=== PATIENT | female | born 1940 | race Caucasian/White ===

== ENCOUNTER 2021-12-04 16:16 | Emergency (ER) | payer MEDICARE ==
[~2021-12-04] VITALS: Ht 152.4 cm; Wt 65.9 kg
[2021-12-04 16:18] VITALS: TEMP 98.1
[2021-12-04 17:05] LABS: COLLECTION METHOD CLEAN CATCH
[2021-12-04 17:20] LABS: HEMATOCRIT 39.5 % (37.0-47.0); HEMOGLOBIN 13.6 g/dl (12.5-16.0); MEAN CELL VOLUME 95 fl (80.0-100.0); MEAN CORPUSCULAR HEMOGLOBIN 33 pg (27-31); MEAN CORPUSCULAR HGB CONC 34 g/dl (33.0-37.0); MEAN PLATELET VOLUME 9.5 fl (7.4-10.4); PLATELET COUNT 166 K/mm3 (130-400); RED BLOOD COUNT 4.17 M/mm3 (4.10-5.30); REDCELL DISTRIBUTION WIDTH-CV 12.7 % (11.5-14.5)
[2021-12-04 17:24] LABS: MUCOUS Present (NOT PRESENT); PH 5 (5-8); SQUAMOUS EPITHELIAL 0-2 /hpf (0-10); URINE APPEARANCE Hazy (CLEAR/HAZY); URINE BACTERIA None Seen /hpf (NONE SEEN); URINE BILIRUBIN Negative (NEGATIVE); URINE BLOOD Negative (NEGATIVE); URINE COLOR Amber (YELLOW); URINE GLUCOSE Negative (NEGATIVE); URINE KETONE 1+ (NEGATIVE); URINE LEUKOCYTE ESTERASE Negative (NEGATIVE); URINE NITRATE Negative (NEGATIVE); URINE PROTEIN(semi-quant) Negative (NEGATIVE); URINE RBC 0-2 /hpf (0-2)
[2021-12-04 17:45] LABS: ALBUMIN 3.3 gm/dL (3.4-4.8); BILIRUBIN,TOTAL 1.3 mg/dL (0.2-1.2); CALCIUM 9.2 mg/dL (8.4-10.2); CREATININE, serum 0.62 mg/dL (0.57-1.11); POTASSIUM 3.3 mmol/L (3.5-4.5); TOTAL PROTEIN 6.5 gm/dL (6.2-8.1)
[2021-12-04 18:28] LABS: BAND 7 % (0-10); BASOPHIL 1 % (0-2); LYMPHOCYTE 7 % (20.0-51.0); NEUTROPHILS 84 % (42.0-75.2); PLATELET ESTIMATE NORMAL (NORMAL)
[2021-12-04] MEDS ORDERED: ROBAXIN 75750 MG/TAB PO (21:26)
[2021-12-04] MEDS ORDERED: NAPROSYN 2250 MG/TAB PO (21:26)
[2021-12-04 22:45] VITALS: BP 119/58; PULSE 63
== END 2021-12-04 22:45 | disposition home or self-care (01) ==
LOC: COL.ER 16:16
PROVIDERS: Emergency Medicine
DX: M54.9 Dorsalgia, unspecified (principal); Z99.81 Dependence on supplemental oxygen; Z28.310 Unvaccinated for COVID-19
CPT/HCPCS: J1885; Q9967

== ENCOUNTER 2021-12-10 07:54 | Inpatient (IN) | payer MEDICARE ==
[~2021-12-10] VITALS: Ht 167.6 cm; Wt 70.4 kg
[~2021-12-10 07:54] MED LIST: NAPROSYN 2250 MG/TAB PO; ROBAXIN 75750 MG/TAB PO
[2021-12-10 08:32] LABS: HEMOGLOBIN 13.4 g/dl (12.5-16.0); MEAN CELL VOLUME 91 fl (80.0-100.0); MEAN CORPUSCULAR HEMOGLOBIN 32 pg (27-31); MEAN CORPUSCULAR HGB CONC 35 g/dl (33.0-37.0); MEAN PLATELET VOLUME 9.3 fl (7.4-10.4); PLATELET COUNT 207 K/mm3 (130-400); RED BLOOD COUNT 4.16 M/mm3 (4.10-5.30); REDCELL DISTRIBUTION WIDTH-CV 13.3 % (11.5-14.5)
[2021-12-10 08:36] LABS: COLLECTION METHOD CATHETER
[2021-12-10 08:47] LABS: ALANINE AMINOTRANSFERASE 80 U/L (0-55); ALBUMIN 2.1 gm/dL (3.4-4.8); ALKALINE PHOSPHATASE 382 U/L (40-150); ANION GAP 11 mmol/L (7-16); AST,SGOT 37 U/L (5-34); BLOOD UREA NITROGEN 17 mg/dL (10-20); CALCIUM 9.3 mg/dL (8.4-10.2); CARBON DIOXIDE 25 mmol/L (23-31); CHLORIDE 105 mmol/L (98-107); CREATININE, serum 0.63 mg/dL (0.57-1.11); GLUCOSE 122 mg/dL (70-99); POTASSIUM 3.2 mmol/L (3.5-4.5); SODIUM 141 mmol/L (136-145); TOTAL PROTEIN 6.1 gm/dL (6.2-8.1)
[2021-12-10 08:48] LABS: LIPASE < 4 U/L (8-78)
[2021-12-10 08:56] LABS: MUCOUS Present (NOT PRESENT); PH 5 (5-8); SQUAMOUS EPITHELIAL 0-2 /hpf (0-10); URINE APPEARANCE Hazy (CLEAR/HAZY); URINE BACTERIA None Seen /hpf (NONE SEEN); URINE BILIRUBIN Positive (NEGATIVE); URINE BLOOD Negative (NEGATIVE); URINE CALCIUM OXALATE CRYSTAL Present (NOT PRESENT); URINE COLOR Amber (YELLOW); URINE GLUCOSE Negative (NEGATIVE); URINE KETONE Negative (NEGATIVE); URINE LEUKOCYTE ESTERASE Trace (NEGATIVE); URINE NITRATE Negative (NEGATIVE); URINE PROTEIN(semi-quant) 2+ (NEGATIVE); URINE UROBILINOGEN >=4.0 (NEGATIVE)
[2021-12-10 09:26] LABS: BAND 11 % (0-10); LYMPHOCYTE 9 % (20.0-51.0); MYELOCYTE 1 % (0-0); NEUTROPHILS 70 % (42.0-75.2); PLATELET ESTIMATE NORMAL (NORMAL)
[2021-12-10 14:30] VITALS: BP 188/76; PULSE 64; TEMP 98
[2021-12-10] MEDS ORDERED: MACRODANTIN50 MG/CA1 PO (14:51)
[2021-12-10] MEDS ORDERED: COSOPT 2%-0.5%10 ML OU (14:53)
[2021-12-10] MEDS ORDERED: LUMIGAN 2.5 ML2.5 M1 OP (14:54)
[2021-12-10] MEDS ORDERED: WELLBUTRIN XL300 M1 PO (14:55)
[2021-12-10] MEDS ORDERED: ADDERALL20 MG PO (14:55)
[2021-12-10] MEDS ORDERED: DESYREL 100MG100 MG PO (14:56)
[2021-12-10] MEDS ORDERED: NORVASC 5MG5 MG/TAB PO (14:56)
[2021-12-10] MEDS ORDERED: ZOCOR 20MG20 MG PO (14:57)
[2021-12-10] MEDS ORDERED: PRINIVIL40 MG PO (14:57)
[2021-12-10] MEDS ORDERED: ASPIRIN 81M81 MG/TA2 PO (14:57)
[2021-12-10] MEDS ORDERED: PRILOSEC 20MG20 MG PO (14:58)
[2021-12-10] MEDS ORDERED: EPA FISH OIL1 SGL PO (14:59)
[2021-12-10] MEDS ORDERED: GAS RELIEF 8080 MG PO (14:59)
[2021-12-10] MEDS ORDERED: ULTRAM 50MG TAB50 MG PO (15:00)
[2021-12-10] MEDS ORDERED: MULTI VITAMINS1 TAB PO (15:00)
[2021-12-10] MEDS ORDERED: MIRALAX PA17 GM/Dose PO (15:04)
[2021-12-10] MEDS ORDERED: VOLTAREN GEL 1%1 TU TP (15:35)
[2021-12-10 15:36] VITALS: BP 134/51; PULSE 66; TEMP 98.2
[2021-12-10 19:23] VITALS: BP 163/68; PULSE 67; TEMP 98.6
[2021-12-11] VITALS (422 sets, daily range): BP systolic 92–190; BP diastolic 40–101; PULSE 55–96; TEMP 97.6–99; O2SAT 62–100
[2021-12-11 07:30] LABS: HEMATOCRIT 40.3 % (37.0-47.0); HEMOGLOBIN 13.8 g/dl (12.5-16.0); MEAN CELL VOLUME 94 fl (80.0-100.0); MEAN CORPUSCULAR HEMOGLOBIN 32 pg (27-31); MEAN CORPUSCULAR HGB CONC 34 g/dl (33.0-37.0); MEAN PLATELET VOLUME 9.6 fl (7.4-10.4); PLATELET COUNT 228 K/mm3 (130-400); RED BLOOD COUNT 4.28 M/mm3 (4.10-5.30); REDCELL DISTRIBUTION WIDTH-CV 13.6 % (11.5-14.5)
[2021-12-11 07:51] LABS: ALBUMIN 1.9 gm/dL (3.4-4.8); BILIRUBIN,TOTAL 0.9 mg/dL (0.2-1.2); CALCIUM 9.1 mg/dL (8.4-10.2); CREATININE, serum 0.54 mg/dL (0.57-1.11); MAGNESIUM 1.6 mg/dL (1.6-2.6); POTASSIUM 3.1 mmol/L (3.5-4.5); TOTAL PROTEIN 5.9 gm/dL (6.2-8.1)
[2021-12-11 10:00] LABS: BAND 2 % (0-10); LYMPHOCYTE 2 % (20.0-51.0); NEUTROPHILS 92 % (42.0-75.2); PLATELET ESTIMATE NORMAL (NORMAL)
[2021-12-11 10:01] LABS: BURR CELLS 1+; HYPERSEGMENTED POLYS PRESENT; OVALOCYTES 1+; POIKILOCYTOSIS 1+; POLYCHROMASIA 1+
[2021-12-11 13:50] LABS: ARTERIAL BLD GAS O2 SATURATION 90.1 % (92-100); ARTERIAL BLD GAS TCO2 CT 22.9; ARTERIAL BLOOD GAS BASE EXCESS -1.7 (-2-2); ARTERIAL BLOOD GAS HCO3 21.9 meq/L (22-26); ARTERIAL BLOOD GAS PCO2 33.7 mmHg (35-45); ARTERIAL BLOOD GAS pH 7.43 (7.35-7.45)
[2021-12-11 17:43] LABS: ARTERIAL BLD GAS O2 SATURATION 94.3 % (92-100); ARTERIAL BLD GAS TCO2 CT 23.1; ARTERIAL BLOOD GAS BASE EXCESS -0.2 (-2-2); ARTERIAL BLOOD GAS HCO3 22.2 meq/L (22-26); ARTERIAL BLOOD GAS PCO2 29.9 mmHg (35-45); ARTERIAL BLOOD GAS PO2 68.6 mmHg (80-100); ARTERIAL BLOOD GAS pH 7.49 (7.35-7.45)
[2021-12-11 20:30] LABS: ARTERIAL BLD GAS O2 SATURATION 99.4 % (92-100); ARTERIAL BLD GAS TCO2 CT 23.2; ARTERIAL BLOOD GAS BASE EXCESS 0.9 (-2-2); ARTERIAL BLOOD GAS HCO3 22.4 meq/L (22-26); ARTERIAL BLOOD GAS PCO2 27.9 mmHg (35-45); ARTERIAL BLOOD GAS pH 7.52 (7.35-7.45)
[2021-12-12] VITALS (873 sets, daily range): BP systolic 89–116; BP diastolic 44–58; PULSE 60–64; TEMP 97.2–98.4; O2SAT 81–100
[2021-12-12 00:06] LABS: ARTERIAL BLD GAS O2 SATURATION 96.9 % (92-100); ARTERIAL BLD GAS TCO2 CT 21.6; ARTERIAL BLOOD GAS BASE EXCESS -1.7 (-2-2); ARTERIAL BLOOD GAS HCO3 20.7 meq/L (22-26); ARTERIAL BLOOD GAS PCO2 28.2 mmHg (35-45); ARTERIAL BLOOD GAS PO2 87.2 mmHg (80-100); ARTERIAL BLOOD GAS pH 7.48 (7.35-7.45)
[2021-12-12 05:09] LABS: BASO # 0.1 K/mm3 (0.0-0.2); BASO % 0.4 % (0.0-2.0); EOS # 0.1 K/mm3 (0.0-0.7); EOS % 0.3 % (0.0-4.0); GRAN # 16.9 K/mm3 (1.4-6.5); GRAN % 86.4 % (42.2-75.2); LYMPH # 1.2 K/mm3 (1.2-3.4); LYMPH % 6.2 % (20.0-51.0); MEAN CELL VOLUME 95 fl (80.0-100.0); MEAN CORPUSCULAR HGB CONC 34 g/dl (33.0-37.0); MEAN PLATELET VOLUME 9.4 fl (7.4-10.4); MONO # 1.1 K/mm3 (0.1-0.6); MONO % 5.5 % (1.7-9.3); PLATELET COUNT 204 K/mm3 (130-400); RED BLOOD COUNT 3.43 M/mm3 (4.10-5.30); REDCELL DISTRIBUTION WIDTH-CV 14.1 % (11.5-14.5)
[2021-12-12 05:11] LABS: INR 1.4 (0.8-3.0)
[2021-12-12 05:13] LABS: ARTERIAL BLD GAS TCO2 CT 23.9; ARTERIAL BLOOD GAS BASE EXCESS -0.3 (-2-2); ARTERIAL BLOOD GAS HCO3 22.9 meq/L (22-26); ARTERIAL BLOOD GAS PCO2 32.9 mmHg (35-45); ARTERIAL BLOOD GAS PO2 104.7 mmHg (80-100); ARTERIAL BLOOD GAS pH 7.46 (7.35-7.45)
[2021-12-12 05:23] LABS: ALBUMIN 1.7 gm/dL (3.4-4.8); CALCIUM 8.4 mg/dL (8.4-10.2); CREATININE, serum 0.59 mg/dL (0.57-1.11); MAGNESIUM 1.5 mg/dL (1.6-2.6); PHOSPHOROUS 2.7 mg/dL (2.3-4.7); POTASSIUM 3.7 mmol/L (3.5-4.5); TOTAL PROTEIN 5.2 gm/dL (6.2-8.1)
[2021-12-12 05:36] LABS: HEMATOCRIT 32.6 % (37.0-47.0); MEAN CORPUSCULAR HEMOGLOBIN 32 pg (27-31)
[2021-12-12 10:17] LABS: PLEURAL FLUID RBC 7000 /mm3 (0-0); PLEURAL FLUID WBC 1100 /mm3
[2021-12-12 10:24] LABS: PLEURAL FLUID APPEARANCE CLOUDY; PLEURAL FLUID COLOR YELLOW
[2021-12-12 13:58] LABS: ARTERIAL BLD GAS O2 SATURATION 96.8 % (92-100); ARTERIAL BLD GAS TCO2 CT 22.2; ARTERIAL BLOOD GAS BASE EXCESS -3.6 (-2-2); ARTERIAL BLOOD GAS HCO3 21.1 meq/L (22-26); ARTERIAL BLOOD GAS PCO2 36.7 mmHg (35-45); ARTERIAL BLOOD GAS PO2 91.8 mmHg (80-100); ARTERIAL BLOOD GAS pH 7.38 (7.35-7.45)
== END 2021-12-12 15:10 | disposition short-term general hospital (02) | DRG 871 ==
LOC: COL.ER 07:54 → MEDICAL 12:59 → ICU 12-11 14:09
PROVIDERS: Emergency Medicine; Internal Medicine Pulmonary Disease; Physician Assistant; ADMIT Internal Medicine
PROC: 02HV33Z Insertion of Infusion Device into Superior Vena Cava, Percutaneous Approach (ICD-10-PCS; principal; 2021-12-11)
PROC: 5A1935Z Respiratory Ventilation, Less than 24 Consecutive Hours (ICD-10-PCS; 2021-12-11)
PROC: 0BH18EZ Insertion of Endotracheal Airway into Trachea, Via Natural or Artificial Opening Endoscopic (ICD-10-PCS; 2021-12-11)
DX: A41.9 Sepsis, unspecified organism (principal); J18.9 Pneumonia, unspecified organism; J96.01 Acute respiratory failure with hypoxia; J90 Pleural effusion, not elsewhere classified; I38 Endocarditis, valve unspecified; K59.00 Constipation, unspecified; G89.29 Other chronic pain; R59.1 Generalized enlarged lymph nodes; M41.85 Other forms of scoliosis, thoracolumbar region; E78.5 Hyperlipidemia, unspecified; F90.9 Attention-deficit hyperactivity disorder, unspecified type; K21.9 Gastro-esophageal reflux disease without esophagitis; I10 Essential (primary) hypertension; M46.46 Discitis, unspecified, lumbar region; B95.61 Methicillin susceptible Staphylococcus aureus infection as the cause of diseases classified elsewhere; H40.9 Unspecified glaucoma; R74.01 Elevation of levels of liver transaminase levels; F32.A Depression, unspecified; Z20.822 Contact with and (suspected) exposure to COVID-19; E83.52 Hypercalcemia; E87.6 Hypokalemia; E88.09 Other disorders of plasma-protein metabolism, not elsewhere classified; Z79.82 Long term (current) use of aspirin; Z87.19 Personal history of other diseases of the digestive system; Z90.710 Acquired absence of both cervix and uterus; Z87.440 Personal history of urinary (tract) infections; Z23 Encounter for immunization
CPT/HCPCS: 99223-AI; 99232-AI; A4314; A9284; C1751; C9113; J0696; J1650; J1940; J2060; J2212; J2270; J2543; J2704; J3010; J3370; J3480; J7030; J7040; J7050; P9047; Q9967

== ENCOUNTER 2022-01-13 08:59 | Inpatient (IN) | payer MEDICARE ==
[~2022-01-13] VITALS: Ht 152.4 cm; Wt 72.7 kg
[~2022-01-13 08:59] MED LIST changes: +ADDERALL20 MG PO; +ASPIRIN 81M81 MG/TA2 PO; +COSOPT 2%-0.5%10 ML OU; +DESYREL 100MG100 MG PO; +EPA FISH OIL1 SGL PO; +GAS RELIEF 8080 MG PO; +LUMIGAN 2.5 ML2.5 M1 OP; +MACRODANTIN50 MG/CA1 PO; +MIRALAX PA17 GM/Dose PO; +MULTI VITAMINS1 TAB PO; +NORVASC 5MG5 MG/TAB PO; +PRILOSEC 20MG20 MG PO; +PRINIVIL40 MG PO; +ULTRAM 50MG TAB50 MG PO; +VOLTAREN GEL 1%1 TU TP; +WELLBUTRIN XL300 M1 PO; +ZOCOR 20MG20 MG PO
[2022-01-13 10:02] LABS: BASO % 0.4 % (0.0-2.0); EOS # 0.1 K/mm3 (0.0-0.7); EOS % 0.8 % (0.0-4.0); GRAN # 5.8 K/mm3 (1.4-6.5); GRAN % 73.3 % (42.2-75.2); LYMPH # 1.6 K/mm3 (1.2-3.4); LYMPH % 19.7 % (20.0-51.0); MEAN CELL VOLUME 106 fl (80.0-100.0); MEAN CORPUSCULAR HGB CONC 31 g/dl (33.0-37.0); MEAN PLATELET VOLUME 9.2 fl (7.4-10.4); MONO # 0.4 K/mm3 (0.1-0.6); MONO % 5.5 % (1.7-9.3); PLATELET COUNT 193 K/mm3 (130-400); RED BLOOD COUNT 2.71 M/mm3 (4.10-5.30); REDCELL DISTRIBUTION WIDTH-CV 23.9 % (11.5-14.5)
[2022-01-13 10:07] LABS: COLLECTION METHOD CATHETER
[2022-01-13 10:07] LABS: HEMATOCRIT 28.8 % (37.0-47.0); MEAN CORPUSCULAR HEMOGLOBIN 33 pg (27-31)
[2022-01-13 10:09] LABS: INR 1.3 (0.8-3.0); PROTHROMBIN TIME 14.5 SECONDS (9.7-12.8)
[2022-01-13 10:13] LABS: PH 6 (5-8); SQUAMOUS EPITHELIAL 0-2 /hpf (0-10); URINE APPEARANCE Clear (CLEAR/HAZY); URINE BACTERIA None Seen /hpf (NONE SEEN); URINE BLOOD Negative (NEGATIVE); URINE COLOR Yellow (YELLOW); URINE GLUCOSE Negative (NEGATIVE); URINE KETONE Negative (NEGATIVE); URINE NITRATE Negative (NEGATIVE); URINE PROTEIN(semi-quant) Negative (NEGATIVE); URINE RBC 0-2 /hpf (0-2); URINE UROBILINOGEN Negative (NEGATIVE)
[2022-01-13 10:19] LABS: ALBUMIN 1.3 gm/dL (3.4-4.8); BILIRUBIN,TOTAL 0.7 mg/dL (0.2-1.2); CREATININE, serum 1.3 mg/dL (0.57-1.11); TOTAL PROTEIN 4.9 gm/dL (6.2-8.1)
[2022-01-13 10:28] LABS: TROPONIN-I 0.109 ng/mL (0.00-0.033)
[2022-01-13 14:30] VITALS: BP 162/67; PULSE 64; TEMP 98.7
[2022-01-13] MEDS ORDERED: CORDARONE200 MG/TAB PO (14:38)
[2022-01-13] MEDS ORDERED: ELIQUIS 2.5 PO (14:38)
[2022-01-13] MEDS ORDERED: NITROSTAT0.4 MG/TAB SL (14:39)
[2022-01-13] MEDS ORDERED: ROXICODONE 55 MG/TAB PO (14:40)
[2022-01-13] MEDS ORDERED: TYLENOL 325MG325 MG PO (14:41)
[2022-01-13] MEDS ORDERED: REMERON 15M15 MG/TA1 PO (14:44)
[2022-01-13] MEDS ORDERED: LASIX 20MG TABL20 MG PO (14:45)
[2022-01-13] MEDS ORDERED: CEPACOL SORE TH1 LO8 MM (14:47)
[2022-01-13] MEDS ORDERED: SALONPAS1 EACH TP (14:52)
[2022-01-13] MEDS ORDERED: MYLANTA 150 ML150 M1 PO (14:55)
[2022-01-13] MEDS ORDERED: LOMOTIL 0.025 M1 TAB PO (14:57)
[2022-01-13] MEDS ORDERED: DULCOLAX TAB5 MG PO (14:58)
[2022-01-13] MEDS ORDERED: MIRALAX PA17 GM/Dose PO (14:59)
[2022-01-13] MEDS ORDERED: ZOFRAN ODT4 MG PO (15:02)
[2022-01-13] MEDS ORDERED: PROTONIX 40MG T40 MG PO (15:02)
[2022-01-13] MEDS ORDERED: LOTRIMIN AF133 GM TOP (15:05)
[2022-01-13] MEDS ORDERED: ANUSOL HC CREAM30 GM TP (15:07)
[2022-01-13] MEDS ORDERED: ALIGN PO (15:08)
[2022-01-13] MEDS ORDERED: [UNRECOGNIZED DRUG - CODE] IV (15:10)
[2022-01-13] MEDS ORDERED: XALATAN EYE DROPS OU (15:12)
[2022-01-13] MEDS ORDERED: REFRESH CELLUVI1 SOL OU (15:14)
[2022-01-13 16:00] VITALS: BP 123/52; PULSE 65
--- NOTE | 2022-01-13 18:26 | NUR ---
PT ADMITED FROM ED , CURRENTLY STAYING IN [facility], ADMITTED WITH C/O SOB, PT ON TELE, PICC LINE ON LEFT UPPER ARM, ON ROOM AIR.EDEMA TO THE SEDRICK LOWER EXTRIMITY, SACRAL AREA IS REDDENED.PT IS ORIENT AND ALERT X4, DUE MEDICATIONS GIVEN.DENIES COMPLAINTS OF PAIN.PT IS INCONTINENT OF URINE AND STOOL, PURIC INPLACE.
[2022-01-13 19:00] VITALS: BP 141/54; PULSE 73; TEMP 97.8
[2022-01-13 22:32] LABS: PARTIAL THROMBOPLASTIN TIME 34.3 SECONDS (26.0-37.0)
[2022-01-13 23:28] VITALS: BP 160/85; PULSE 93; TEMP 99
[2022-01-14 03:17] VITALS: BP 130/77; PULSE 75; TEMP 98.9
[2022-01-14 07:13] LABS: ALBUMIN 1.2 gm/dL (3.4-4.8); CREATININE, serum 1.29 mg/dL (0.57-1.11); MAGNESIUM 1.6 mg/dL (1.6-2.6); PHOSPHOROUS 3.4 mg/dL (2.3-4.7); POTASSIUM 3.2 mmol/L (3.5-4.5)
[2022-01-14 07:16] LABS: BASO % 0.4 % (0.0-2.0); EOS # 0.1 K/mm3 (0.0-0.7); EOS % 0.6 % (0.0-4.0); GRAN # 5.9 K/mm3 (1.4-6.5); HEMATOCRIT 28.8 % (37.0-47.0); LYMPH # 1.9 K/mm3 (1.2-3.4); LYMPH % 22.7 % (20.0-51.0); MEAN CELL VOLUME 108 fl (80.0-100.0); MEAN CORPUSCULAR HEMOGLOBIN 34 pg (27-31); MEAN CORPUSCULAR HGB CONC 31 g/dl (33.0-37.0); MEAN PLATELET VOLUME 9.3 fl (7.4-10.4); MONO # 0.6 K/mm3 (0.1-0.6); MONO % 6.8 % (1.7-9.3); PLATELET COUNT 189 K/mm3 (130-400); RED BLOOD COUNT 2.67 M/mm3 (4.10-5.30); REDCELL DISTRIBUTION WIDTH-CV 23.9 % (11.5-14.5)
[2022-01-14 07:38] VITALS: BP 107/46; PULSE 75; TEMP 98.1
--- NOTE | 2022-01-14 10:30 | NUR ---
Initial visit; Patient thanked Field Organizer for looking in on her and offering God's blessings and keeping her in Field Organizer's prayers.
[2022-01-14 11:09] VITALS: BP 101/59; PULSE 63; TEMP 98.8
--- NOTE | 2022-01-14 13:15 | NUR ---
Patient admitted with PICC located in her left upper arm. PICC dressing changes dated 01/05/2022. There are no signs or symptoms of IV complications noted. Sterile dressing change performed. Caps changed.
[2022-01-14 16:20] VITALS: BP 140/57; PULSE 66; TEMP 97.6
--- NOTE | 2022-01-14 17:21 | NUR ---
Application Support Technician spoke with Shashi at [facility] who advised they admitted patient from [facility] on Friday and that it was a very difficulty weekend with patient. Shashi advised they do not feel patient's needs can be met at SNF and that she needs LTACH. MANDEEP collaborated with Hospitalist who advised a referral to [facility] would be appropriate. MANDEEP met with patient and patient's daughter, Anamaria (ph#[phone]) and granddaughter Lanny (ph#[phone]). Patient's primary care physician is Dr. Lidia Shi and she was living in [place] prior to recent hospitalization. Patient was hospitalized here then transferred to [facility] where she was for four weeks. Patient would like to get back home eventually. Lanny also remarked they want to see Dr. Jackson as an outpatient once she is back home. Patient has no Advance Directives in EMR but Anamaria advised that patient's son, Julius (ph#[phone]) is DPOA-HC and that his , Kb (ph#[phone]) is another good point of contact. Lanny and Anamaria feel patient was discharged from [facility] too soon and are agreeable to [facility] referral. MANDEEP faxed referral to [facility] and will follow up tomorrow. Discharge Plan: [facility]
[2022-01-14 20:35] VITALS: BP 122/52; PULSE 79; TEMP 99.1
[2022-01-15] VITALS (7 sets, daily range): BP systolic 101–131; BP diastolic 53–57; PULSE 60–72; TEMP 97.7–98.8
[2022-01-15 06:20] LABS: BASO % 0.5 % (0.0-2.0); EOS # 0.2 K/mm3 (0.0-0.7); EOS % 1.9 % (0.0-4.0); GRAN # 4.9 K/mm3 (1.4-6.5); GRAN % 61.2 % (42.2-75.2); LYMPH # 2.3 K/mm3 (1.2-3.4); LYMPH % 28.8 % (20.0-51.0); MEAN CELL VOLUME 106 fl (80.0-100.0); MEAN CORPUSCULAR HGB CONC 32 g/dl (33.0-37.0); MEAN PLATELET VOLUME 9.6 fl (7.4-10.4); MONO # 0.6 K/mm3 (0.1-0.6); MONO % 7.3 % (1.7-9.3); PLATELET COUNT 212 K/mm3 (130-400); RED BLOOD COUNT 2.61 M/mm3 (4.10-5.30); REDCELL DISTRIBUTION WIDTH-CV 23.4 % (11.5-14.5)
[2022-01-15 06:26] LABS: HEMATOCRIT 27.6 % (37.0-47.0); HEMOGLOBIN 8.8 g/dl (12.5-16.0); MEAN CORPUSCULAR HEMOGLOBIN 34 pg (27-31)
--- NOTE | 2022-01-15 06:32 | NUR ---
PT FAMILY HAD CONCERNS/COMPLAINTS ABOUT VARIOUS THINGS OVER THE SPAN OF A MONTH OR SO. MUCH OF THE TIME THAT FAMILY IS SPEAKING OUT, PT WAS NOT AT [facility] BUT AT OTHER FACILITIES. DAUGHTER/GRANDDAUGHTER VERY UPSET REGARDING DIET ORDERED FULL LIQUIDS. DAUGHTER INSISTENT THAT PATIENT IS NOT EATING ENOUGH. REPEATEDLY STATED THAT WE ARE "TRYING TO KILL" HER MOTHER. REQUESTED THAT PT'S EARS BE IRRIGATED. EXPLAINED TO THEM THAT I COULD NOT DO THAT WITHOUT A DOCTORS ORDER, WILL PASS THAT REQUEST ALONG TO FIRST SHIFT NURSE. ALLOWED FAMILY TO SPEAK AND VENT. ASKED THEM MULTIPLE TIMES IF THERE WAS ANYTHING I COULD DO FOR THEM TO RESOLVE STRESS LEVEL AT THIS TIME, THEY DID NOT REQUEST ANYTHING INPARTICULAR. LISTENED TO CONCERNS, ALLOWED FOR VENTING. REASSURED THEM ABOUT CARE FOR THE PATIENT. PATIENT LATER APOLOGIZED TO ME ABOUT FAMILY BEHAVIORS.
[2022-01-15 06:43] LABS: ALBUMIN 1.2 gm/dL (3.4-4.8); CALCIUM 7.8 mg/dL (8.4-10.2); CREATININE, serum 1.26 mg/dL (0.57-1.11); MAGNESIUM 1.6 mg/dL (1.6-2.6); PHOSPHOROUS 3.1 mg/dL (2.3-4.7)
[2022-01-15 06:51] LABS: POTASSIUM 2.8 mmol/L (3.5-4.5)
[2022-01-15 10:32] LABS: PLEURAL FLUID RBC 21000 /mm3 (0-0); PLEURAL FLUID WBC 593 /mm3
[2022-01-15 10:46] LABS: PLEURAL FLUID APPEARANCE HAZY; PLEURAL FLUID COLOR PINK
--- NOTE | 2022-01-15 16:36 | NUR ---
Regional Marketing Director received a message from Maddi at [facility] who advised patient meets criteria and they may have a bed or Friday. SW contacted Maddi and left message that patient is ready for DC once a bed is available per Hospitalist and that family prefers [facility] if possible.
[2022-01-16 04:24] VITALS: BP 127/62; PULSE 72; TEMP 97.6
[2022-01-16 06:40] LABS: BASO % 0.5 % (0.0-2.0); EOS # 0.2 K/mm3 (0.0-0.7); EOS % 3.7 % (0.0-4.0); GRAN # 3.6 K/mm3 (1.4-6.5); GRAN % 56.7 % (42.2-75.2); LYMPH # 1.9 K/mm3 (1.2-3.4); LYMPH % 30.3 % (20.0-51.0); MEAN CELL VOLUME 106 fl (80.0-100.0); MEAN CORPUSCULAR HGB CONC 32 g/dl (33.0-37.0); MEAN PLATELET VOLUME 9.7 fl (7.4-10.4); MONO # 0.5 K/mm3 (0.1-0.6); MONO % 8.3 % (1.7-9.3); PLATELET COUNT 199 K/mm3 (130-400); RED BLOOD COUNT 2.48 M/mm3 (4.10-5.30); REDCELL DISTRIBUTION WIDTH-CV 23.3 % (11.5-14.5)
[2022-01-16 06:45] LABS: HEMATOCRIT 26.3 % (37.0-47.0); HEMOGLOBIN 8.4 g/dl (12.5-16.0); MEAN CORPUSCULAR HEMOGLOBIN 34 pg (27-31)
[2022-01-16 06:55] LABS: ALBUMIN 1.1 gm/dL (3.4-4.8); CALCIUM 7.6 mg/dL (8.4-10.2); CREATININE, serum 1.26 mg/dL (0.57-1.11); MAGNESIUM 1.6 mg/dL (1.6-2.6); PHOSPHOROUS 2.7 mg/dL (2.3-4.7); POTASSIUM 4.1 mmol/L (3.5-4.5)
[2022-01-16 07:51] VITALS: BP 111/55; PULSE 74; TEMP 98.5
[2022-01-16 11:28] VITALS: BP 123/60; PULSE 75; TEMP 98.4
--- NOTE | 2022-01-16 15:20 | NUR ---
Aquatics Instructor faxed clinical updates to Maria A at [facility] who advised they have bed availability for patient at the [place] location. MANDEEP spoke with Hospitalist who advised patient will require transfer, likely back to [facility]. MANDEEP updated patient and family who would prefer [facility] in [place] if possible. MANDEEP updated GOMEZ Delgado who advised patient's neurosurgeon would prefer [facility] as the team and specialties there are familiar with her care. Sandy advised if [facility] does not have a bed by tomorrow, they will consider [facility] as neurosurgeon has privledges there. MANDEEP attempted to update patient, but she was receiving cares. MANDEEP updated RN. MANDEEP also contacted Maria A at [facility] who advised they would continue to follow patient even after transfer.
--- NOTE | 2022-01-16 16:14 | NUR ---
1600-PT TO ULTRASOUND FOR RT THORACENTESIS. FAMILY REMAINS AT BED AND UPDATED ON POC. CONTINUE TO TRY GET BED AT [facility] IT IS SURGEON PREFERENCE. IF NONE BY TOMORROW WILL PROCEED WITH TRYING TO GET A BED AT [facility].
--- NOTE | 2022-01-16 16:51 | NUR ---
PT RETURNS FROM [facility] DRAINED OFF AND SPECIMEN SENT.
[2022-01-16 17:06] LABS: PLEURAL FLUID RBC 18000 /mm3 (0-0); PLEURAL FLUID WBC 754 /mm3
[2022-01-16 17:12] LABS: PLEURAL FLUID APPEARANCE CLOUDY; PLEURAL FLUID COLOR RED
[2022-01-16 20:33] VITALS: BP 141/58; PULSE 78; TEMP 98.9
--- NOTE | 2022-01-16 21:44 | NUR ---
PT LAYING IN BED RESTING QUIETLY. PT DENIES ANY PAIN AT THIS TIME.
[2022-01-17 00:44] VITALS: BP 132/54; PULSE 67; TEMP 97.7
[2022-01-17 03:59] VITALS: BP 144/62; PULSE 73; TEMP 98.7
[2022-01-17 06:19] LABS: BASO % 0.4 % (0.0-2.0); EOS # 0.3 K/mm3 (0.0-0.7); EOS % 3.7 % (0.0-4.0); GRAN # 4.2 K/mm3 (1.4-6.5); GRAN % 57.9 % (42.2-75.2); LYMPH # 2.2 K/mm3 (1.2-3.4); LYMPH % 29.4 % (20.0-51.0); MEAN CELL VOLUME 105 fl (80.0-100.0); MEAN CORPUSCULAR HGB CONC 32 g/dl (33.0-37.0); MEAN PLATELET VOLUME 9.2 fl (7.4-10.4); MONO # 0.6 K/mm3 (0.1-0.6); MONO % 8.5 % (1.7-9.3); PLATELET COUNT 225 K/mm3 (130-400); RED BLOOD COUNT 2.52 M/mm3 (4.10-5.30); REDCELL DISTRIBUTION WIDTH-CV 22.5 % (11.5-14.5)
[2022-01-17 06:22] LABS: HEMATOCRIT 26.4 % (37.0-47.0); HEMOGLOBIN 8.4 g/dl (12.5-16.0); MEAN CORPUSCULAR HEMOGLOBIN 33 pg (27-31)
[2022-01-17 06:37] LABS: ALBUMIN 1.1 gm/dL (3.4-4.8); CALCIUM 7.9 mg/dL (8.4-10.2); CREATININE, serum 1.24 mg/dL (0.57-1.11); MAGNESIUM 1.5 mg/dL (1.6-2.6); PHOSPHOROUS 2.8 mg/dL (2.3-4.7); POTASSIUM 3.2 mmol/L (3.5-4.5)
[2022-01-17 07:04] VITALS: BP 143/52; PULSE 86; TEMP 98.6
--- NOTE | 2022-01-17 10:23 | NUR ---
Hospitalist working on transfer. Half Sole Fitter updated Maddi at [facility].
--- NOTE | 2022-01-17 10:29 | NUR ---
DSG TO SPINE CHANGED. PT HAD LARGE LOOSE BM THIS AM. MAG AND KCL BEING REPLACED. DOC ROUNDS, WILL CONT TO CHECK ON BED AT [facility] AND [facility]. NONE AVAILABLE AT MOMENT. DAUGHTER IN [place] AT BEDSIDE THIS AM. DR QUINONES DISCUSS POC W BOTH PT AND FAMILY. DAUGHTER CALLED [facility] TO INQUIRE ABOUT BED PRIOR TO DOC ROUNDS AND UPDATED. WILL CONT TO TRY TO GET HER A BED WHERE HER NEUROSURGEON IS AT. NEEDS MET.
[2022-01-17 11:05] VITALS: BP 135/56; PULSE 77; TEMP 98.7
[2022-01-17 15:45] VITALS: BP 106/69; PULSE 77; TEMP 98.1
--- NOTE | 2022-01-17 16:22 | NUR ---
PT FAMILY HAS QUESTION ABOUT TRANSFER-CALLED [facility]. NO BED AVABILITY AT [facility] NOR [facility] IN [place]. MULTIPLE QUESTIONS/CONCERNS. WILL COME TO BEDSIDE TO ANSWER.
[2022-01-17 21:09] VITALS: BP 133/56; PULSE 70; TEMP 98.6
--- NOTE | 2022-01-17 22:00 | NUR ---
ASSESSMENT COMPLETE FOR PANTRY ATTENDANT. PT RESTING IN BED NAPPING WITH FAMILY AT BEDSIDE. FAMILY EXPRESSED CONCERN ABOUT PT BEING MOVED UP IN THE BED WITH A DRAW SHEET. PT STATED SHE WAS COMFORTABLE RIGHT WHERE SHE WAS, AND DID NOT WANT TO BE MOVED. PT COMPLAINED OF BACK/LT SIDE PAIN. PT REQUESTED AND GIVEN TYLENOL FOR PAIN. PT FELT THE TYLENOL WAS EFFECTIVE AT THAT TIME. PT DENIED CHEST PAIN, PALPITATIONS, SOB, N,V,D OR DIZZINESS. PT WAS ABLE TO GET A BED AT [facility] AND WILL BE TRANSFERRED TONIGHT. PT AND FAMILY INFORMED. ALL QUESTIONS AND CONCERNS ADDRESSED. PT EXPRESSED NO ADDITIONAL NEEDS AT THIS TIME. CALL LIGHT WITHIN REACH.
--- NOTE | 2022-01-17 23:45 | NUR ---
PT GIVEN ROXICODONE FOR PAIN PER REQUEST, FOR LONG AMBULANCE RIDE TO [facility]. PT LIFTED FROM HER BED TO THE [facility]ANCE [facility], WITH THE HELP OF 3 HOSPITAL STAFF MEMBERS AND 2 EMS STAFF. PT TRANSPORTED VIA AMBULANCE TO [facility].
[2022-01-19 17:33] LABS: BODY FLUID PH (AMS) >7.50
== END 2022-01-17 23:45 | disposition short-term general hospital (02) | DRG 205 ==
LOC: COL.ER 08:59 → MEDICAL 11:46
PROVIDERS: Emergency Medicine; Internal Medicine Pulmonary Disease; Physician Assistant; ADMIT Internal Medicine
PROC: 0W9B3ZX Drainage of Left Pleural Cavity, Percutaneous Approach, Diagnostic (ICD-10-PCS; principal; 2022-01-15)
PROC: 0W993ZX Drainage of Right Pleural Cavity, Percutaneous Approach, Diagnostic (ICD-10-PCS; 2022-01-16)
DX: J95.89 Other postprocedural complications and disorders of respiratory system, not elsewhere classified (principal); I21.A1 Myocardial infarction type 2; J91.8 Pleural effusion in other conditions classified elsewhere; E46 Unspecified protein-calorie malnutrition; T81.31XA Disruption of external operation (surgical) wound, not elsewhere classified, initial encounter; J98.11 Atelectasis; I12.9 Hypertensive chronic kidney disease with stage 1 through stage 4 chronic kidney disease, or unspecified chronic kidney disease; D64.9 Anemia, unspecified; K21.9 Gastro-esophageal reflux disease without esophagitis; E78.5 Hyperlipidemia, unspecified; F90.9 Attention-deficit hyperactivity disorder, unspecified type; E87.6 Hypokalemia; I48.91 Unspecified atrial fibrillation; G89.29 Other chronic pain; M54.9 Dorsalgia, unspecified; E88.09 Other disorders of plasma-protein metabolism, not elsewhere classified; F32.A Depression, unspecified; Z20.822 Contact with and (suspected) exposure to COVID-19; H40.9 Unspecified glaucoma; I27.20 Pulmonary hypertension, unspecified; E87.70 Fluid overload, unspecified; N18.9 Chronic kidney disease, unspecified; Z95.4 Presence of other heart-valve replacement; Z79.01 Long term (current) use of anticoagulants; Z95.1 Presence of aortocoronary bypass graft; Z90.710 Acquired absence of both cervix and uterus; Z90.49 Acquired absence of other specified parts of digestive tract; Z86.718 Personal history of other venous thrombosis and embolism; Z95.0 Presence of cardiac pacemaker; Z79.82 Long term (current) use of aspirin; Z86.79 Personal history of other diseases of the circulatory system; Z23 Encounter for immunization
CPT/HCPCS: OP; 99223-AI; G0378; J0696; J1450; J1650; J1940; J2405; J3370; J3475; J3480; J7050; Q9967